=== PATIENT | male | born 1950 | race Caucasian/White ===

== ENCOUNTER → 2019-12-27 08:43 | Outpatient (CLI) | payer BC, SELFPAY ==
--- NOTE | ~2019-12-27 | CT_ITS ---
EXAMINATION:CT chest wo con DATE: 12/27/2019 08:57 INDICATION: Lung nodules. TECHNIQUE: Computed tomography (CT) of the chest was performed without intravenous contrast. Automate d exposure control and iterative reconstruction technique were employed. The dose-length product (DLP ) was 83.28 mGy-cm. COMPARISON: Chest CT 11/26/2016 FINDINGS: There is mild emphysema. There is mild atelectasis in the inferior lungs. There is a stable 2 mm nodule in right upper lobe. No pleural effusion. The heart size is normal. There are coronary a rtery calcifications. No pericardial effusion. There are bridging endplate osteophytes at multiple le vels in the spine, consistent with diffuse idiopathic skeletal hyperostosis (DISH). IMPRESSION: 1. Lung-RADS category 2: Benign appearance or behavior. Continue annual screening with noncontrast lo w-dose chest CT in 12 months. Reviewed, dictated and finalized at location A. IMPRESSION: 1. Lung-RADS category 2: Benign appearance or behavior. Continue annual screeni ng with noncontrast low-dose chest CT in 12 months.
== END ==
PROVIDERS: PCP Student in an Organized Health Care Education/Training Program; Visit Provider Student in an Organized Health Care Education/Training Program
DX: R91.8 Other nonspecific abnormal finding of lung field (principal)
CPT/HCPCS: 71250

== ENCOUNTER 2022-01-28 09:52 | Outpatient (CLI) | payer BC, SELFPAY ==
--- NOTE | ~2022-01-28 | XR_ITS ---
EXAMINATION: XR barium swallow modified DATE: 01/28/2022 10:45 INDICATION: Dysphagia. TECHNIQUE: The patient was given barium-containing material of multiple consistencies to swallow by luis m perea speech pathologist while I performed fluoroscopy. Dose-area product was [id number] Gy-cm2. FINDINGS: Oral Stage: Within functional limits Pharyngeal Phase: Reduced laryngeal elevation and trace laryngeal penetration Cervical/Esophageal Stage: Within functional limits IMPRESSION: Modified esophagram findings as above. Please refer [facility] the speech [facility]. Reviewed, dictated and finalized at [facility]. Reviewed, dictated and finalized at location A. IMPRESSION: Modified esophagram findings as above. Please refer to the speech t herapy report for specific recommendations.
--- NOTE | 2022-01-28 11:18 | REHSTMBS ---
Assessment and note entered by Lis Hutton, AUTOMATIC LEHR OPERATOR Modified Barium Swallow Evaluation Feeding Type Recommended Oral Food Consistency Regular, Level 7 Liquid Consistency Thin (0) ST Clinical Summary MODIFIED BARIUM SWALLOW STUDY (MBS) Patient was seen for a Modified Barium Swallow study to determine cause of his complaints of coughing, gagging on crispy foods such as fried fish and chicken in a coating. He stated that this has been occurring for some time but appears to be random, could be one month between episodes but has occurred more frequently. Symptoms include coughing/gagging on what feels like the solid food . Today the patient exhibited somewhat consistent trace penetration on uncontrolled thin liquid per straw although not observed with cup or other consistencies. Patient was instructed to use head flexion when swallowing thin liquids. This recommendation was placed in writing and demonstrated by speech pathologist so that patient was able to voice understanding. He was asked to try head flexion BEFORE having a problem in order to avoid coughing /choking. He again voiced demonstration. Additionally, it was explained to him that it is possible the swallowing issue is not on the solid foods but on the liquids washing down the solid residual, pulling the solid to the top of the airway causing or contributing to the noted coughing/gagging. Thank you for this referral.
== END 2022-01-28 09:53 | disposition home or self-care (01) ==
PROVIDERS: PCP Student in an Organized Health Care Education/Training Program; Visit Provider Otolaryngology
DX: R13.10 Dysphagia, unspecified (principal)
CPT/HCPCS: 92611

== ENCOUNTER 2022-07-21 13:19 | Emergency (ER) | payer BC, SELFPAY ==
--- NOTE | ~2022-07-21 | XR_ITS ---
EXAMINATION: [id number] INDICATION: Right rib pain TECHNIQUE: A frontal view of the chest and 3 views of the right ribs were obtained. COMPARISON: None. FINDINGS: The lungs are free of acute opacities. No pleural effusion or pneumothorax. The cardiomedia stinal silhouette is normal. There appears to be a nondisplaced fracture at the anterolateral aspect of the right eighth rib. IMPRESSION: 1. Possible nondisplaced right eighth rib fracture. Reviewed, dictated and finalized at location A.
[2022-07-21 13:27] VITALS: BP 156/73; PULSE 73; RESP 16; TEMP 36.9; O2SAT 96
--- NOTE | 2022-07-21 13:40 | ED.GENADULT ---
HPI - General Adult General Chief complaint: Unspecified Stated complaint: right upper rib pain Time Seen by Provider: 07/21/22 13:40 Source: patient Mode of arrival: ambulatory Limitations: no limitations History of Present Illness HPI narrative: 72-year-old male presents with complaint of pain to anterior aspect right ribs after falling into bed of his truck yesterday morning. States he was crawling into back of truck and he tripped and fell forward. Having pain with sneezing and coughing. No difficulty breathing. Ambulatory steady gait. Concerned for rib fracture. All systems reviewed and negative except as noted above. Related Data Allergies Allergy/AdvReac Type Severity Reaction Status Date / Time No Known Allergies Allergy Verified 07/21/22 13:36 Review of Systems Review of Systems: CONSTITUTIONAL: Denies fever, chills, or sweats. EYES: Denies visual changes, redness, or discharge. ENT: Denies rhinorrhea, congestion, sore throat, or otalgia. CARDIOVASCULAR: Denies chest pain, palpitations, or edema. RESPIRATORY: Denies cough or dyspnea. GASTROINTESTINAL: Denies abdominal pain, nausea, vomiting, or diarrhea. GENITOURINARY: Denies dysuria or hematuria. SKIN: Denies rash or itching. MUSCULOSKELETAL: Denies back pain, joint pain, or myalgia. Reports pain to right ribs NEUROLOGIC: Denies headache, numbness, or weakness. PSYCHIATRIC: Denies anxiety or depression. All other systems reviewed are negative, except as documented in HPI. PMFSH Comments At time of signature, agree with nursing past medical, surgical, social and family history. There is no relevant family history pertinent to the presenting complaint. Exam Narrative: GENERAL: This is a well-nourished, well-developed patient, in no apparent distress. HEAD: normocephalic, atraumatic. EYES: PERRL. Sclera clear/white. Vision is grossly intact. EARS: External ears normal NOSE: External nose normal NECK: Neck supple, non-tender without lymphadenopathy, masses or thyromegaly. CARDIOVASCULAR: Regular rate and rhythm without murmurs, gallops, or rubs. RESPIRATORY: Clear to auscultation. Breath sounds equal bilaterally. No wheezes, rales, or rhonchi. MUSCULOSKELETAL: tenderness on palpation of anterior aspect R ribs. no bruising or swelling noted. SKIN: warm, Dry, intact with no suspicious lesions or rash, good texture and turgor. NEURO: awake, alert, and oriented to person, place and time. There were no obvious focal neurologic abnormalities. EXTREMITIES: No joint tenderness, effusion, or edema noted. Course Course Level of Care: Express Care Visit Vital Signs Vital signs: Vital Signs Temperature 36.9 C 07/21/22 13:27 Pulse Rate 73 07/21/22 13:27 Respiratory Rate 16 07/21/22 13:27 Blood Pressure 156/73 H 07/21/22 13:27 Pulse Oximetry 96 07/21/22 13:27 Oxygen Delivery Room Air 07/21/22 13:27 Temperature 36.9 C 07/21/22 13:27 Pulse Rate 73 07/21/22 13:27 Respiratory Rate 16 07/21/22 13:27 Blood Pressure 156/73 H 07/21/22 13:27 Pulse Oximetry 96 07/21/22 13:27 Oxygen Delivery Room Air 07/21/22 13:27 Reviewed Medical Decision Making MDM Narrative Medical decision making narrative: Patient is aware of diagnosis, understands and agrees to treatment plan. Anticipatory guidance given. Patient agrees to follow-up as directed and is aware of reasons to seek care at the emergency department. Portions of this record may have been created with voice recognition software discussed x-ray results with patient. Possible right 8th rib fracture. Will prescribe hydrocodone to treat pain. Recommend follow-up with primary care physician. Vital Signs Vital Signs: Vital Signs Temperature 36.9 C 07/21/22 13:27 Pulse Rate 73 07/21/22 13:27 Respiratory Rate 16 07/21/22 13:27 Blood Pressure 156/73 H 07/21/22 13:27 Pulse Oximetry 96 07/21/22 13:27 Oxygen Delivery Room Air 07/21/22 13:27
== END 2022-07-21 14:21 | disposition home or self-care (01) ==
PROVIDERS: Emergency Provider Nurse Practitioner Family; PCP Student in an Organized Health Care Education/Training Program
DX: S22.31XA Fracture of one rib, right side, initial encounter for closed fracture (principal); W19.XXXA Unspecified fall, initial encounter
CPT/HCPCS: 71101; 99213; G0463

== ENCOUNTER 2023-04-22 09:59 | Emergency (ER) | payer BC, SELFPAY ==
--- NOTE | ~2023-04-22 | XR_ITS ---
XR chest 2V 04/22/2023 11:30 Indication: Productive cough for one week Procedure: 2 view chest Comparison: 04/24/2015 Findings: Right middle lobe infiltrate may represent atelectasis or developing pneumonia. Heart size normal. No pleural effusion or pneumothorax. Mild thoracic spondylosis. No acute osseous abnormality. Impression: 1: New right middle lobe infiltrate may represent atelectasis or developing pneumonia. Reviewed, dictated and finalized at location L. EN WORKER Impression: 1: New right middle lobe infiltrate may represent atelectasis or developing pne umonia.
--- NOTE | 2023-04-22 10:05 | ED.URI ---
HPI - URI/Sore Throat General Chief Complaint: Upper Respiratory Infection Stated Complaint: chest/nasal congestion Time Seen by Provider: 04/22/23 10:57 Source: patient Mode of arrival: ambulatory Limitations: no limitations History of Present Illness HPI Narrative: Sea is a 73-year-old male patient presenting to the clinic today with complaints of cough, chest and nasal congestion x1 0.5 weeks. He denies any shortness of breath or chest pain. States he has chronic nasal drip and cough. Is bringing up clear phlegm but this morning brought up some darker phlegm. MD elicited complaint: cough and nasal congestion Related Data Allergies Allergy/AdvReac Type Severity Reaction Status Date / Time No Known Allergies Allergy Verified 07/21/22 13:36 Review of Systems Review of Systems: Pertinent positives per HPI. Patient denies any fever, chills, rash, headache, visual changes, dizziness, shortness of breath, chest pain, palpitations, nausea, vomiting, diarrhea, constipation, abdominal pain, or any urinary issues. PMFSH Comments At the time of my signature, I reviewed and agree with the nursing past medical, surgical, social, and family history. There is no relevant family history pertinent to the patient complaint. Exam Narrative: General: Well-developed, well nourished, in no apparent distress Head: Normocephalic, atraumatic Eyes: Pupils equally round and reactive to light bilaterally, EOM intact, sclera and conjunctive clear, no discharge, lids normal Ears: TMs intact and clear, ear canals clear, no drainage, grossly hearing normal. Nose: Nares patent, no discharge, no inflammation, no sinus tenderness. Mouth: Oral pharynx without lesions or masses, good dentition, MMM. Neck: Supple, trachea midline, no enlargement of anterior or posterior cervical nodes, no thyroid masses or goiter palpable. Cardio: Regular rate and rhythm, s1 and s2 normal, no murmur appreciated. Resp: Scattered rhonchi and expiratory wheezing throughout lung hansen, no rales or rubs Course Course Emergency Course: Portions of this record may have been created with voice recognition software. Level of Care: Express Care Visit Vital Signs Vital signs: Vital Signs Temperature 36.8 C 04/22/23 10:51 Pulse Rate 55 L 04/22/23 10:51 Respiratory Rate 16 04/22/23 10:51 Blood Pressure 152/74 H 04/22/23 10:51 Pulse Oximetry 98 04/22/23 10:51 Oxygen Delivery Room Air 04/22/23 10:51 Temperature 36.8 C 04/22/23 10:51 Pulse Rate 55 L 04/22/23 10:51 Respiratory Rate 16 04/22/23 10:51 Blood Pressure 152/74 H 04/22/23 10:51 Pulse Oximetry 98 04/22/23 10:51 Oxygen Delivery Room Air 04/22/23 10:51 Vital signs reviewed MDM - URI/Sore Throat MDM Narrative Medical decision making narrative: At the time of visit patient is resting comfortably on the exam table. Patient appears to be nontoxic. Diagnostics: Chest x-ray shows new right middle lobe infiltrate may represent atelectasis versus developing pneumonia Plan: We will go ahead and treat patient for community-acquired pneumonia with azithromycin and Augmentin. Will also send in prescription for albuterol inhaler and prednisone to treat the bronchitis. Supportive measures were discussed with the patient and they voiced understanding discharge instructions and agrees to treatment plan. Strict return precautions reviewed Differential Diagnosis Differential diagnosis: Likely upper respiratory infection, otitis media, sinusitis, viral infection, bronchitis, influenza, pharyngitis and other (Pneumonia) Imaging Data Radiologist's impression: ITS Impressions Chest X-Ray 04/22/23 11:35 Impression: 1: New right middle lobe infiltrate may represent atelectasis or developing pneumonia. Discharge Plan Discharge Clinical Impression: Bronchitis Pneumonia Qualifiers: Pneumonia type: due to unspecified organism Laterality: right L
[2023-04-22 10:51] VITALS: BP 152/74; PULSE 55; RESP 16; TEMP 36.8; O2SAT 98
== END 2023-04-22 11:52 | disposition home or self-care (01) ==
PROVIDERS: Emergency Provider Nurse Practitioner Family; PCP Student in an Organized Health Care Education/Training Program
DX: J40 Bronchitis, not specified as acute or chronic (principal); J18.9 Pneumonia, unspecified organism
CPT/HCPCS: 71046; 99213; G0463

== ENCOUNTER 2023-09-19 10:20 | Emergency (ER) | payer BC, SELFPAY ==
--- NOTE | 2023-09-19 10:25 | ED.URI ---
HPI - URI/Sore Throat General Chief Complaint: Upper Respiratory Infection Stated Complaint: Cough,Runny Nose, Congestion Time Seen by Provider: 09/19/23 10:55 Source: patient and RN notes reviewed Mode of arrival: ambulatory Limitations: no limitations History of Present Illness HPI Narrative: 73-year-old male presents concern for 3-4 day history of cough, chest congestion, nasal congestion. Reports exposure to COVID. He denies fever, chills, sweats. He has not taken any [id number] medications MD elicited complaint: cough and nasal congestion Related Data Allergies Allergy/AdvReac Type Severity Reaction Status Date / Time No Known Allergies Allergy Verified 09/19/23 10:21 Review of Systems Review of Systems: CONSTITUTIONAL: Denies malaise, chills, sweats, or fever. EYES: Denies visual changes, redness, or discharge. ENT: Reports rhinorrhea, congestion. Denies sinus pain, otalgia and sore throat. CARDIOVASCULAR: Denies chest pain, palpitations, or edema. RESPIRATORY: Reports cough. Denies dyspnea. GASTROINTESTINAL: Denies abdominal pain, nausea, vomiting, diarrhea SKIN: Denies rash or itching. MUSCULOSKELETAL: Denies myalgia. NEUROLOGIC: Denies headache. All systems reviewed & are unremarkable except as noted in HPI and below PMFSH Comments At time of signature, agree with nursing past medical, surgical, social and family history. There is no relevant family history pertinent to the presenting complaint Exam Narrative: GENERAL: Well-appearing, well-nourished, and in no acute distress. HEAD: Normocephalic EYES: PERRLA, conjunctivae clear ENT: Nares clear. Mucous membranes moist. TM pearly horowitz with sharp light reflex bilaterally; no tragal tenderness. Oropharynx not erythematous without lesions. Tonsils not enlarged and without exudate, no drooling, no hoarseness, no trismus, uvula midline. NECK: Supple. No lymphadenopathy CHEST: Clear to auscultation, breath sounds equal. No wheezing, rhonchi, rales, or stridor. No respiratory distress, speaks in full sentences. HEART: Regular rate and rhythm. No murmur heard. SKIN: Warm, dry, no rash. NEURO: Alert and oriented x3. PSYCH: Normal mood and affect Course Course Emergency Course: Patient is aware of diagnosis, understands and agrees to treatment plan. Anticipatory guidance given. Patient agrees to follow-up as directed and is aware of reasons to seek care at the emergency department. Portions of this record may have been created with voice recognition software Level of Care: Express Care Visit Vital Signs Vital signs: Vital Signs Temperature 98 F 09/19/23 10:35 Pulse Rate 57 L 09/19/23 10:35 Respiratory Rate 18 09/19/23 10:35 Blood Pressure 153/75 H 09/19/23 10:35 Pulse Oximetry 100 09/19/23 10:35 Oxygen Delivery Room Air 09/19/23 10:35 Temperature 98 F 09/19/23 10:35 Pulse Rate 57 L 09/19/23 10:35 Respiratory Rate 18 09/19/23 10:35 Blood Pressure 153/75 H 09/19/23 10:35 Pulse Oximetry 100 09/19/23 10:35 Oxygen Delivery Room Air 09/19/23 10:35 Reviewed. MDM - URI/Sore Throat MDM Narrative Medical decision making narrative: Differential diagnosis considered: Moff[place] virus, strep pharyngitis, allergic rhinitis, upper respiratory tract infection, sinusitis, rhinosinusitis, nasopharyngitis. viral pharyngitis, otitis media, otitis externa, pneumonia, bronchitis, viral cough syndrome, viral syndrome, and influenza. Exam findings show no acute concerns or changes; patient is non-toxic appearing and is in no distress. Patient is appropriate for outpatient treatment and follow-up. Lab Data Attestation: I reviewed the patient's lab results. Labs: Lab Results 09/19/23 Range/Units 10:42 POC SARS CoV-2 Ag Negative (Negative) Influenza A Screen Negative Reference Range: Negative Influenza B Screen Negative
[2023-09-19 10:35] VITALS: BP 153/75; PULSE 57; RESP 18; TEMP 36.6; O2SAT 100
== END 2023-09-19 11:16 | disposition home or self-care (01) ==
PROVIDERS: Emergency Provider Nurse Practitioner; PCP Student in an Organized Health Care Education/Training Program
DX: J06.9 Acute upper respiratory infection, unspecified (principal); Z20.822 Contact with and (suspected) exposure to COVID-19
CPT/HCPCS: 87426; 87804; 99213; G0463